=== PATIENT | male | born 2000 | race Caucasian/White ===

== ENCOUNTER 2024-01-10 12:30 | Outpatient (REF) | payer MEDICAID, SELFPAY ==
[2024-01-11 20:13] LABS: Hepatitis B Surface Ab Qnt >1000 mIU/mL (> OR = 10)
[2024-01-11 23:09] LABS: Rubella IgG Antibody 1.39 Index; Rubeola IgG (Measles) <13.50 AU/mL
== END 2024-01-10 12:31 | disposition home or self-care (01) ==
LOC: HO.HHCL 12:30
PROVIDERS: Visit Provider Family Medicine
DX: Z02.0 Encounter for examination for admission to educational institution (principal)
CPT/HCPCS: 36415; 86317; 86735; 86762; 86765; 86787

== ENCOUNTER 2024-01-24 09:27 | Outpatient (REF) | payer MEDICAID, SELFPAY ==
[2024-01-27 09:49] LABS: TS Negative Control Passed; TS Panel A 0; TS Panel B 0; TS Positive Control Passed; TSpotTB Negative (Negative)
== END 2024-01-24 09:28 | disposition home or self-care (01) ==
LOC: HO.HHCL 09:27
PROVIDERS: Visit Provider Family Medicine
DX: Z00.00 Encounter for general adult medical examination without abnormal findings (principal)
CPT/HCPCS: 36415; 86481

== ENCOUNTER 2024-12-27 09:51 | Emergency (ER) | payer BC, SELFPAY ==
[2024-12-27 09:54] VITALS: BP 153/68; PULSE 75; RESP 18; TEMP 36.9; O2SAT 98; BMI 23.7
[2024-12-27 10:29] VITALS: BP 128/72; PULSE 67; RESP 19; TEMP 37.1; O2SAT 98
--- NOTE | 2024-12-27 10:52 | ED.EAR ---
HPI - Ear Problem General Chief complaint: Ear Problems Stated complaint: l ear pain Time Seen by Provider: 12/27/24 10:50 Source: patient and RN notes reviewed Mode of arrival: ambulatory Limitations: no limitations History of Present Illness ED Provider: Staci Persaud PA-C HPI Narrative: This is a 24-year-old male who presents emergency department with concerns of left ear pain x2 weeks. Patient states that he was seen at [facility] where he was diagnosed with an ear infection and was prescribed amoxicillin. He completed the full course however continue to have pain in his ear. He also reports slight clear drainage and decreased hearing. He denies any fevers or chills. No sore throat or difficulty swallowing. No recent swimming. No other complaints or concerns at this time. MD Complaint: ear pain, ear discharge and decreased hearing Location: left ear Duration: constant Relieving factors: nothing Exacerbating factors: nothing Discharge from ear: yes - clear Associated symptoms ear: decreased hearing Treatment prior to arrival: none Related Data Previous Rx's ?Medication ?Instructions ?Recorded acetaminophen 500 mg tablet 1,000 mg (2 x 500 mg) PO Q6H PRN 12/27/24 (Tylenol Extra Strength) pain #30 tabs cefuroxime axetil 500 mg tablet 500 mg PO BID 7 days #14 tabs 12/27/24 ibuprofen 600 mg tablet 600 mg PO Q6H PRN fever or pain 12/27/24 #30 tabs ofloxacin 0.3 % ear drops 10 drp otic (ears) DAILY 7 days #5 12/27/24 mL Allergies Allergy/AdvReac Type Severity Reaction Status Date / Time No Known Allergies Allergy Verified 12/27/24 09:56 Review of Systems Review of Systems: Yes all other systems are reviewed and are negative Constitutional: Constitutional: Reports as per [facility] Social History Social History Advance Directives: No Advance Directives Information Provided: No Physical Exam Vital Signs: Vital Signs: Last Vital Signs Temp 98.7 F 12/27/24 10:29 Pulse 67 12/27/24 10:29 Resp 19 12/27/24 10:29 BP 128/72 12/27/24 10:29 Pulse Ox 98 12/27/24 10:29 O2 Del Method Room Air 12/27/24 10:29 BMI result Body Mass Index 23.7 Const: Other: General: Awake, alert, and oriented X3. No acute distress. HEENT: Left auditory canal is erythematous, slightly edematous, left TM is intact, slightly erythematous and bulging. CVS: Normal heart rate and rhythm. Pulses normal. Respiratory: No respiratory distress Skin: Warm, dry, no rashes noted to exposed skin. Normal skin color. Normal skin turgor. Extremities: Normal to inspection Neuro: Oriented X 3. No motor deficit. No sensory deficit. Medical Decision Making Medical Decision Making MDM Narrative: This is a 24-year-old male who presents emergency department with ongoing left ear pain for the last 2 weeks. Previously treated with amoxicillin which did not help. On arrival, vital signs reveal he was slightly hypertensive at 153/68, improved to 120 8/72, he is afebrile, nontoxic appearing, speaking in full sentences. Left ear canal is erythematous, left TM is slightly erythematous and bulging. TM is intact. Patient's symptoms consistent with otitis media and externa, will treat with topical and oral antibiotics. Given he was previously on amoxicillin, will treat with cephalosporin. He also reports decreased hearing out of his left ear therefore he was referred to ENT. Given strict return precautions, stable for discharge Differential Diagnosis Differential Diagnoses: The differential diagnosis associated with the presentation includes Otitis media, otitis externa, cerumen impaction, TM perforation Discharge Plan Discharge Clinical Impression: Otitis externa, Otitis media Patient Disposition: Home, Self-Care Instructions: How to Use Ear Drops (ED), Ear Infection (ED) Additional Instructions: You were seen in the emergency department due to left ear pain. Your left ear is still infected. You have a inner ear infection as well as an external ear infection. This requires oral antibiotics as well as topical antibiotics. Please complete full course of antibiotics even if your symptoms improve. Do not get any water into the ear drum until your symptoms fully resolved. You may follow-up with the nuclear weapons mechanical specialist, call to make an appointment. Alternate between ibuprofen and or Tylenol as needed for pain and symptoms. If any new or worsening symptoms occur including but not limited to worsening pain, high fevers, severe chest pain or shortness for breath, please seek emergent care. [place] [address] Prescriptions: New cefuroxime axetil 500 mg tablet 500 mg PO BID 7 Days Qty: 14 0RF acetaminophen [Tylenol Extra Strength] 500 mg tablet 1,000 mg PO Q6H PRN (Reason: pain) Qty: 30 0RF ofloxacin 0.3 % drops 10 drp otic (ears) DAILY 7 Days Qty: 5 0RF ibuprofen 600 mg tablet 600 mg PO Q6H PRN (Reason: fever or pain) Qty: 30 0RF Print Language: Setswana
[2024-12-27 11:52] VITALS: BP 128/72; PULSE 67; RESP 19; TEMP 37.1; O2SAT 98
== END 2024-12-27 11:55 | disposition home or self-care (01) ==
PROVIDERS: Emergency Provider Emergency Medicine
DX: H60.92 Unspecified otitis externa, left ear (principal); H66.92 Otitis media, unspecified, left ear; H92.02 Otalgia, left ear
CPT/HCPCS: 99283; 99284

== ENCOUNTER 2025-06-15 10:39 | Emergency (ER) | payer BC, SELFPAY ==
[2025-06-15 10:59] VITALS: BP 137/79; PULSE 78; RESP 16; TEMP 36.3; O2SAT 97; BMI 26.8
--- NOTE | 2025-06-15 11:08 | ED.GENADULT ---
HPI - General Adult General Chief complaint: Ear Problems Stated complaint: Loss Of Hearing In Left Ear Time Seen by Provider: 06/15/25 11:05 Source: patient Mode of arrival: ambulatory Limitations: no limitations History of Present Illness ED Provider: Benji Ramírez HPI narrative: 24-year-old male presents to ED for left ear pain and decreased hearing for the past 2 months some whooshing sounds in left ear. Patient denies any dizziness, recent URI symptoms, swimming, chest pain, shortness of breath, slurred speech, facial droop, headache, dizziness or paralysis of extremities. Related Data Previous Rx's ?Medication ?Instructions ?Recorded acetaminophen 500 mg tablet 1,000 mg (2 x 500 mg) PO Q6H PRN 12/27/24 (Tylenol Extra Strength) pain #30 tabs cefuroxime axetil 500 mg tablet 500 mg PO BID 7 days #14 tabs 12/27/24 ibuprofen 600 mg tablet 600 mg PO Q6H PRN fever or pain 12/27/24 #30 tabs ofloxacin 0.3 % ear drops 10 drp otic (ears) DAILY 7 days #5 12/27/24 mL naproxen 500 mg tablet 500 mg PO BID PRN pain #14 tabs 06/15/25 Allergies Allergy/AdvReac Type Severity Reaction Status Date / Time No Known Allergies Allergy Verified 06/15/25 11:00 Review of Systems Review of Systems: Left ear pain Yes all other systems are reviewed and are negative [facility] Social History Social History Advance Directives: No Advance Directives Information Provided: No Physical Exam ED Vital Signs: Vital Signs - 24 hr 06/15/25 10:59 Temperature 97.4 F Pulse Rate 78 Respiratory Rate 16 Blood Pressure 137/79 Pulse Oximetry 97 Oxygen Delivery Method Room Air BMI result Body Mass Index 26.8 Const Orientation/consciousness: patient oriented x3 HENMT Head: Yes normal to inspection, Yes No palpable skull fracture present, Yes normocephalic and Yes atraumatic Ears: hearing grossly normal bilaterally, external ears normal, TM's normal bilaterally, TM normal on the right, TM normal on the left, EAC's normal, mastoids normal and no periauricular adenopathy Throat: Yes posterior oropharynx normal, Yes tonsils normal and Yes uvula midline Eyes General: appearance normal, both eyes and all related structures Neck Neck: Yes normal visual inspection, Yes full ROM, Yes no lymphadenopathy, Yes no meningeal signs, Yes trachea midline, Yes supple, No anterior neck swelling and No tender Chest Chest palpation & inspection: normal inspection of the chest and normal palpation of entire chest wall Resp Effort & Inspection: normal respiratory effort and able to speak in complete sentences Auscultation: clear to auscultation bilaterally Cardio Jugular venous distension: no JVD Heart sounds: S1 normal heart sound present and S2 normal heart sound present GI Inspection: Yes normal to inspection Palpation (GI): Soft to palpation, not firm, nontender, no guarding and not rigid General: Yes no CVA tenderness Back/Spine/Pelvis Back: no CVA tenderness and No back tenderness Skin General skin exam: no rashes or lesions noted, elasticity normal and turgor normal Neuro General: patient oriented x3, gait normal, tone normal, moves all extremities, Normal light touch and pain sensation, no meningeal signs, no focal motor deficits, CN's II-XI intact bilaterally and normal sensation to monofilament Extrem General: Yes normal to inspection, Yes full ROM and Yes capillary refill normal Psych Appearance: grossly normal, well kempt and not disheveled Medical Decision Making Medical Decision Making MDM Narrative: 24 yold male presents to the ED with left ear pain with decreased hearing for the past 2 months. Patient denes any recent trauma, slurred speech, headache, swimming, bleeding from ears, fever, chills, or dizziness. Patient states no URI symptoms. Not suspecting mastoiditis, osteomyelitits, skull fracture, brain bleed, neck fracture, TM perforation or any other life threatening etiology. Differential Diagnosis Differential Diagnoses: The differential diagnosis associated with the presentation includes (otitis media/externa, mastoiditiis, tm perforation ) Admission/Observation Consideration of admission/observation: Escalation of care including admission/observation considered Independent Historian Clinical information obtained from an independent historian. History obtained from or confirmed by: Other (patient) Prescription Management I considered prescription management with: Pain Medication Discharge Plan Discharge Clinical Impression: Ear ache Patient Disposition: Home, Self-Care Instructions: Earache (ED) Additional Instructions: You will need follow up with With ENT specialist. Return to the ED for any headache, ear discharge, nausea, vomitting, redness, swelling behind ear, slurred speech, lumps, paralysis of extremties, blurry visions, or any other concernign symptoms. Prescriptions: New naproxen 500 mg tablet 500 mg PO BID PRN (Reason: pain) Qty: 14 0RF No Action cefuroxime axetil 500 mg tablet 500 mg PO BID 7 Days Qty: 14 0RF acetaminophen [Tylenol Extra Strength] 500 mg tablet 1,000 mg PO Q6H PRN (Reason: pain) Qty: 30 0RF ofloxacin 0.3 % drops 10 drp otic (ears) DAILY 7 Days Qty: 5 0RF ibuprofen 600 mg tablet 600 mg PO Q6H PRN (Reason: fever or pain) Qty: 30 0RF Referrals: [facility] [Provider Group, Ear, Nose, Throat] - 2 days Referral Note: left ear pain with decreased hearing. Clinical Impression: Ear ache Stand Alone Forms: Work/School Release Interventions: ED Discharge Assessment Last Done: 06/15/25 11:48 Discharge Date/Time: 06/15/25 11:48 Print Language: Dominican
[2025-06-15 11:48] VITALS: BP 137/79; PULSE 78; RESP 16; TEMP 36.3; O2SAT 97
--- OUTSIDE RECORDS SUMMARY | 2025-06-15 14:39 | XMS_ITS | Clinical Summary ---
Author Organization [facility] Address [address] [place] [id number] Phone Care Team Providers Care Computer Systems Auditor Name Role Phone Pcp, Unknown Primary Care Provider Unavailabl e Allergies No known active allergies Medications meclizine (ANTIVERT) 25 mg tablet Take 1 tablet (25 mg total) by mouth 3 (three) times a day as needed for dizziness or nausea. 20 tablet Active Social History Tobacco Use Types Packs/Day Years Used Date Smoking Tobacco: Never Assessed Education Answer Date Recorded Are you interested in more education? Not on shay e 03/01/2024 Are you concerned about learning? Not on file 03/01/2024 No 03/01/2024 No 03/01/2024 Food Answer Date Recorded Within the past 6 months we worried whether our food would run out before we got money to buy more. Never True 12/16/2024 Within the past 6 months the food we bought just didn't last and we didn't have enough money to get more. Never True Residential Stability Answer Date Recor ded What is your housing situation today? I have epifanio sing 12/16/2024 How many times have you move d in the past 12 months? Zero (I did not move) 12/16/2024 Paying for Meds Answer Date Recorded Do you have trouble paying for medicines? No 12/16/2024 Paying Utility Bills Answer Date Record ed Do you have trouble paying your heating or elect ricity bill? No 12/16/2024 Transportation Answer Date Recorded Has the lack of transportati on kept you from medical appointments or from getting medications? No 12/16/2024 Digital Access Answer Date Recorded No 12/16/2024 Yes 12/16/2024 Do you have reliable internet access at home? Ye s 12/16/2024 Do you have a device (e.g., phone, tablet, computer) with a working camera? Yes 12/16/2024 Intimate Partner Violence Answer Date R ecorded Are you denied basic needs s uch as food, clothing, or medical care? No 12/16/2024 In the past 12 months have y ou been in a relationship with a person who hurts, threatens, or tries to control you? No 12/16/2024 Are you denied basic needs s uch as food, clothing, or medical care? No 12/16/2024 In the past 12 months have y ou been in a relationship with a person who hurts, threatens, or tries to control you? No 12/16/2024 Sex and Gender Information Value Date Recorded Sex Assigned at Male 03/01/2024 6:59 PM EDT Legal Sex Male 6:43 PM EDT Gender Identity Male 03/01/2024 6:59 PM EDT Sexual Orientation Don't know 03/01/2024 7: 22 PM EDT Last Filed Vital Signs Vital Sign Reading Time Taken Comments Blood Pressure 115/73 01/22/2025 1:35 PM EDT Pulse 67 01/22/2025 1:35 PM EDT Temperature 36.8 C (98.2 F) 01/22/2025 1:35 PM EDT Respiratory Rate 16 01/22/2025 1:35 PM EDT Oxygen Saturation 98% 01/22/2025 1:35 PM EDT Inhaled Oxygen Concentration - - Weight 62 kg (136 lb 11 oz) 12/16/2024 8:07 AM E DT Height 170 cm (5' 6.93 ) 12/16/2024 8:07 AM EDT Body Mass Index 21.45 12/16/2024 8:07 AM EDT Plan of Treatment Health Maintenance Due Date Last Done Comments DEPRESSION SCREENING 2012 SMOKING Hx and SMOKELESS TOB ACCO SCREENING 2013 HPV VACCINES (1 - Male 3-dos e series) 2015 HEPATITIS C SCREENING 2018 HIV ONE-TIME SCREENING (18-6 5 YEARS) 2018 INFLUENZA VACCINE (#1) 2025 COVID-19 VACCINE (1 - 2024-2 6 season) 2025 Adult Td,Tdap Booster 01/09/2034 01/10/2024 HEPATITIS A VACCINES Aged Out No long er eligible based on patient's age to complete this topic HIB VACCINES Aged Out No longer eligi ble based on patient's age to complete this topic MENINGOCOCCAL VACCINES (ACWY) Aged Out No longer eligible based on patient's age to complete this topic MENINGOCOCCAL VACCINES (B) Aged Out N o longer eligible based on patient's age to complete this topic PNEUMOCOCCAL VACCINES (0-49 years) Aged Out No longer eligible based on patient's age to complete this topic Medical Devices Not on file Insurance PPO EPO [facility] PPO EPO PPO EPO PPO EPO PPO EPO PPO EPO Care Teams Computer Systems Auditor Relationship Specialty Start Date End Date Pcp, Unknown PCP - General 01/22/25 Additional Source Comments The information contained in this document represents components of the legal health record. It is not the complete legal health record.[facility]
--- OUTSIDE RECORDS SUMMARY | 2025-06-15 14:39 | XMS_ITS | Clinical Summary ---
Author Organization [facility] Address [address] [place] [address] Care Team Providers Care Announcer Name Role Phone Unavailable Primary Care Provider Unavailabl e Allergies No known active allergies Medications bacitracin-poly myxin b (Polysporin) ointment Apply topically 2 times daily. Apply to affected area daily 30 g Active fluticasone (Flonase) 50 MCG/ACT nasal spray Administer 1-2 sprays into each nostril Once per day. Shake gently. Before first use, prime pump. After use, clean tip and replace cap. 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 Immunizations Immunization Administration Dates Next Due MMR 02/21/2024,01/24/2024 Tdap 01/10/2024 Social History Tobacco Use Types Packs/Day Years Used Date Smoking Tobacco: Never Smokeless Tobacco: Never Tobacco Cessation:Counseling Given: Not Answered Alcohol Use Standard Drinks/Week Comments Never 0 (1 standard drink = 0.6 oz pur e alcohol) Depression Answer Date Recorded Patient Health Questionnaire-9 Score 0 01/24/2024 Patient Health Questionnaire-9 Score 0 01/24/2024 Last PHQ-9: Questionnaire Data Not on file 0 01/24/2024 Housing Stability Answer Date Recorded What is your housing situation today? I have epifanio grullon 01/24/[address] you li ve. Do you have problems with any of the following? None of the above 01/24/2024 Food Insecurity Answer Date Recorded Within the past 12 months, y ou worried that your food would run out before you got money to buy more: Never True 01/24/2024 Within the past 12 months,th e food you bought just didn't last and you didn't have enough money to get more: Never True 06/2023 Transportation Answer Date Recorded In the past 12 months, has l ack of transportation kept you from medical appts, meetings, work or from getting things needed for daily living? Yes, it has kept me from medical appointments or getting medications. 01/24/2024 Utilities Answer Date Recorded In the past 12 months, has t he [employer], gas, oil or water company threatened to shut off services in your home? No 01/24/2024 Depression Answer Date Recorded Patient Health Questionnaire-2 Score 0 01/24/2024 Internet Access Answer Date Recorded Internet Access Q1 Yes 02/25/2024 Internet Access Q2 Not on file 02/25/2024 Sex and Gender Information Value Date Recorded Sex Assigned at Male 09/27/2022 3:54 PM EDT Legal Sex Male 3:46 PM EDT Gender Identity Male 09/27/2022 3:54 PM EDT Sexual Orientation Choose not to disclose 2022 3:54 PM EDT Last Filed Vital Signs Vital Sign Reading Time Taken Comments Blood Pressure 144/87 01/03/2025 10:55 AM EDT Pulse 72 01/03/2025 10:55 AM EDT Temperature 36.8 C (98.2 F) 01/03/2025 10:55 AM EDT Respiratory Rate 18 01/03/2025 10:55 AM EDT Oxygen Saturation 96% 01/03/2025 10:55 AM EDT Inhaled Oxygen Concentration - - Weight 72.8 kg (160 lb 9.6 oz) 01/03/2025 10:55 AM EDT Height 167.6 cm (5' 6 ) 01/03/2025 10:55 AM EDT Body Mass Index 25.92 01/03/2025 10:55 AM EDT Plan of Treatment Health Maintenance Due Date Last Done Comments HIV Screening 2000 Disability Screening 2000 Alcohol/Substance Use Screening 2012 Family Planning (PISQ) 2015 HPV Vaccines (1 - Male 3-dos e series) 2015 Hepatitis C Screening 2018 Hepatitis B Vaccines (1 of 3 - 19+ 3-dose series) 2019 Dental Oral Exam 05/11/2023 11/07/2022 Dental Prophylaxis 05/21/2023 11/17/2022 Dental X-Ray: Bitewings 11/09/2023 11/07/2022 Depression Screening 01/23/2025 01/24/2024, 01/24/2024 SDOH Screening 01/23/2025 01/24/2024 COVID-19 Vaccine (1 - 2024-2 6 season) 2025 Influenza Vaccine (#1) 2025 Tobacco Screening 03/11/2025 03/11/2024 Dental X-Ray: Full Mouth 11/08/2025 023, 10/13/2022 DTaP/Tdap/Td Vaccines (2 - T d or Tdap) 01/09/2034 01/10/2024 Zoster Vaccines (1 of 2) 2050 RSV Patients and Patients Aged 60 years or older (1 - 1-dose 75+ series) 2075 HIB Vaccines Aged Out No longer eligi ble based on patient's age to complete this topic Hepatitis A Vaccines Aged Out No long er eligible based on patient's age to complete this topic IPV Vaccines Aged Out No longer eligi ble based on patient's age to complete this topic Meningococcal B Vaccine Aged Out No l onger eligible based on patient's age to complete this topic Meningococcal Vaccine Aged Out No lisette janene eligible based on patient's age to complete this topic Pneumococcal Vaccine: Pediatrics (0 to 5 Years) and At-Risk Patients (6 to 49) Years Aged Out No longer eligible b ased on patient's age to complete this topic RSV under 20 months Aged Out No longe r eligible based on patient's age to complete this topic Rotavirus Vaccines Aged Out No longer eligible based on patient's age to complete this topic Procedures Procedure Name Priority Date/Time Associated Diagnosis Comments PROPHYLAXIS - ADULT Routine 11/17/2022 8 :00 AM EDT Generalized gingivitis INTRAORAL - COMPLETE SERIES OF RADIOGRAPHIC IMAGES Routine 11/07/2022 8:00 AM EDT Encounter for dental examination Decalcification of tooth Fibroma Dental plaque Gingivitis COMPREHENSIVE ORAL EVALUATION - NEW OR ESTABLISHED PATIENT Routine 11/07/2022 8:00 AM EDT Encounter for dental examination Decalcification of tooth Fibroma Dental plaque Gingivitis from Last 3 Months or Most Recently Relevant to Health Maintenance Insurance [facility] MEDICA[facility] LIMITED ADULT DENTAL - N FULL (MEDICAID)
== END 2025-06-15 11:48 | disposition home or self-care (01) ==
PROVIDERS: Emergency Provider Emergency Medicine Emergency Medical Services
DX: H92.02 Otalgia, left ear (principal)
CPT/HCPCS: 99282